=== PATIENT | female | born 1995 | race Caucasian/White ===

== ENCOUNTER 2017-12-17 17:42 | Emergency (ER) | payer OTHER ==
[~2017-12-17] VITALS: Ht 160 cm; Wt 124.7 kg
--- NOTE | 2017-12-17 18:58 | NUR ---
PT IS IN ROOM #2B, WAITING FOR DR MENDOZA EVALUATION.
--- NOTE | 2017-12-17 19:15 | NUR ---
report received from day shift RN pt [id number]. here with c/o flu like symptoms. pt able to speak in clear and complete sentences. in no acute distress. no respiratory distress, breathes are equal and symmetrical. ER MD at bedside for MSE.
[2017-12-17] MEDS ORDERED: AZITHROMYCIN 250 MG TABLET PO ONE (19:30)
[2017-12-17] MEDS ORDERED: predniSONE 50 MG TABLET PO ONE (19:30)
[2017-12-17] MEDS ORDERED: predniSONE 50 MG TABLET ONE (19:37)
[2017-12-17] MEDS ORDERED: AZITHROMYCIN 250 MG TABLET ONE (19:37)
--- NOTE | 2017-12-17 19:40 | NUR ---
Patient discharged to home in stable conditon. Written and verbal after care instructions given with rx. Patient verbalizes understanding of instructions. pt ambulated out of ED with stable gait. in no acute distress.
== END 2017-12-17 19:40 | disposition home or self-care (01) ==
LOC: ER 17:43
DX: I88.9 Nonspecific lymphadenitis, unspecified (principal)
CPT/HCPCS: 99283; A4663; J7512; Q0144